=== PATIENT | female | born 1965 | race Caucasian/White ===

== ENCOUNTER 2016-10-20 12:13 | Emergency (ER) | payer MEDICARE, OTHER ==
--- NOTE | 2016-10-20 12:57 | ED ---
Chest Pain HPI - General Chief Complaint: Chest Pain Stated Complaint: Sent by -Heart Symptoms Time Seen by Provider: 10/20/16 12:46 Source: patient, RN notes reviewed Mode of arrival: ambulatory Limitations: no limitations - History of Present Illness Initial Comments: This is a 51-year-old female who presents with complaints of left arm heaviness for the past 9 days also some left chest and axillary pain. She also states she had a sore throat that she was coming down with something. 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 She denies any overt fevers chills or sweats she has any history of high cholesterol type 2 diabetes. She also has a history right foot drop from previous surgery. She states her physical therapist believes her left arm symptoms are secondary to a pinched nerve. MD Complaint: chest pain - Related Data Home Medications Medication Instructions Recorded Confirmed Naproxen Sodium [Aleve] 440 mg PO BID 10/02/14 10/20/16 Cyclobenzaprine [Flexeril] 10 mg PO HS PRN 05/18/16 10/20/16 Ergocalciferol [Vitamin D2] 50,000 unit PO TUTH 05/18/16 10/20/16 Gabapentin [Neurontin] 1,200 mg PO BID 05/18/16 10/20/16 Allergies Allergy/AdvReac Type Severity Reaction Status Date / Time zolpidem tartrate AdvReac Hallucinati Verified 10/20/16 12:50 [From [facility]] ons Review of Systems ROS Statement: Those systems with pertinent positive or pertinent negative responses have been documented in the HPI. ROS Other: All systems not noted in ROS Statement are negative. EKG Findings - EKG Results: EKG: interpreted by [facility]RE, sinus rhythm (Normal sinus rhythm a rate of 86. Interval 170 QRS duration 90 QT/QTC of 370/442 this is a normal-appearing EKG.) Past Medical History Past Medical History: Hyperlipidemia Additional Past Medical History / Comment(s): back pain, neuropathy,foot drop History of Any Multi-Drug Resistant Organisms: None Reported Past Surgical History: Back Surgery Additional Past Surgical History / Comment(s): vocal cords Past Psychological History: Depression Smoking Status: Current every day smoker Past Alcohol Use History: Occasional Past Drug Use History: None Reported General Exam - General Exam Comments Initial Comments: This a well-developed well-nourished awake alert oriented x 3 female Limitations: no limitations General appearance: alert, in no apparent distress Head exam: Present: atraumatic, normocephalic, normal inspection Eye exam: Present: normal appearance, PERRL, EOMI. Absent: scleral icterus, conjunctival injection, periorbital swelling ENT exam: Present: normal exam, mucous membranes moist Neck exam: Present: normal inspection. Absent: tenderness, meningismus, lymphadenopathy Respiratory exam: Present: normal lung sounds bilaterally, chest wall tenderness (Reproducible chest tenderness palpation of the left costochondral margin left upper chest wall. Left axilla.). Absent: respiratory distress, wheezes, rales, rhonchi, stridor Cardiovascular Exam: Present: regular rate, normal rhythm, normal heart sounds. Absent: systolic murmur, diastolic murmur, rubs, gallop, clicks GI/Abdominal exam: Present: soft, normal bowel sounds. Absent: distended, tenderness, guarding, rebound, rigid Extremities exam: Present: normal inspection, full ROM, normal capillary refill. Absent: tenderness, pedal edema, joint swelling, calf tenderness Back exam: Present: normal inspection Neurological exam: Present: alert, oriented X3, CN II-XII intact Psychiatric exam: Present: normal affect, normal mood Skin exam: Present: warm, dry, intact, normal color. Absent: rash Course Vital Signs 10/20/16 10/20/16 10/20/16 12:19 12:50 13:36 Temperature 98.0 F 98.2 F Pulse Rate 101 H 99 78 Respiratory 18 16 18 Rate Blood Pressure 130/81 139/81 136/84 O2 Sat by Pulse 98 100 96 Oximetry 10/20/16 10/20/16 14:09 14:49 Temperature 97.6 F Pulse Rate 72 84 Respiratory 18 18 Rate Blood Pressure 108/68 129/79 O2 Sat by Pulse 95 98 Oximetry Chest Pain MDM - MDM Review the x-ray shows no acute findings. It did discuss the findings with the patient and her family. The presentation is consistent with chest wall pain and costochondritis patient will be discharged with instructions for anti- inflammatory she states she does have Aleve at home and will use this I did recommend warm compresses. Follow-up with her doctor and return when necessary additionally some the discomfort to her upper extremity is likely secondary to some cervical radiculopathy. Disposition Clinical Impression: Chest wall syndrome, Costalchondritis, Cervical radiculopathy Disposition: HOME SELF-CARE Condition: Good Instructions: Costochondritis (ED), Cervical Radiculopathy (ED)
[2016-10-20 13:23] LABS: Partial Thromboplastin Time 25.2 sec (22.0-30.0); Prothrombin Time 10.2 sec (9.0-12.0)
--- NOTE | 2016-10-20 13:26 | XR ---
EXAMINATION TYPE: XR chest 2V DATE OF EXAM: 10/20/2016 1:10 PM COMPARISON: 05/18/2016 TECHNIQUE: PA and lateral views submitted. HISTORY: Chest pain FINDINGS: The lungs are clear and there is no pneumothorax, pleural effusion, or focal pneumonia. Hyperinflat ion suggests COPD. There is a vague density along the medial margin the right apex likely was present on the previous exam and may be pleural-based. This could be reached correlate with a short-term out patient CT chest. IMPRESSION: 1. No acute process. See above.
[2016-10-20 13:31] LABS: ALT 33 U/L (9-52); AST 37 U/L (14-36); Alkaline Phosphatase 126 U/L (38-126); Anion Gap 14 mmol/L; Blood Urea Nitrogen 10 mg/dL (7-17); Calcium 9.8 mg/dL (8.4-10.2); Carbon Dioxide 23 mmol/L (22-30); Chloride 105 mmol/L (98-107); Glucose 98 mg/dL (74-99); Magnesium 1.9 mg/dL (1.6-2.3); Non-African American GFR(MDRD) >60 (>60 ml/min/1.73 sqM); Sodium 142 mmol/L (137-145); Total Bilirubin 0.6 mg/dL (0.2-1.3); Total Protein 7.9 g/dL (6.3-8.2)
[2016-10-20 13:36] LABS: Basophils # (A) 0.1 k/uL (0-0.2); Basophils % (A) 1 %; CH 32.9; CHCM 34.2; Eosinophils # (A) 0.1 k/uL (0-0.7); Eosinophils % (A) 2 %; HCT 47.6 % (34.0-46.0); HDW 2.41; HGB 16.3 gm/dL (11.4-16.0); Luc # (Auto) 0.19; Luc % (Auto) 3; Lymphocytes # (A) 2.4 k/uL (1.0-4.8); Lymphocytes % (A) 36 %; MCH 33.1 pg (25.0-35.0); MCHC 34.3 g/dL (31.0-37.0); MCV 96.5 fL (80.0-100.0); Mean Platelet Volume 9.4; Monocytes # (A) 0.3 k/uL (0-1.0); Monocytes % (A) 5 %; Neutrophils # (A) 3.7 k/uL (1.3-7.7); Neutrophils % (A) 54 %; RBC 4.93 m/uL (3.80-5.40); RDW 12.8 % (11.5-15.5); WBC 6.8 k/uL (3.8-10.6); WBC (Perox) 7.13
[2016-10-20 13:38] VITALS: RESP 18
[2016-10-20 13:50] LABS: Creatine Kinase MB 1.1 ng/mL (0.0-2.4); Troponin I <0.012 ng/mL (0.000-0.034)
[2016-10-20 13:52] LABS: Creatine Kinase 128 U/L (30-135)
[2016-10-20 14:51] VITALS: TEMP 97.6
[2016-10-20 16:36] VITALS: BP 116/78; PULSE 87
== END 2016-10-20 16:35 | disposition home or self-care (01) ==
LOC: EC 12:13
DX: M94.0 Chondrocostal junction syndrome [Tietze] (principal); M54.12 Radiculopathy, cervical region; J02.9 Acute pharyngitis, unspecified; G62.9 Polyneuropathy, unspecified; F32.9 Major depressive disorder, single episode, unspecified; F17.200 Nicotine dependence, unspecified, uncomplicated; Z79.899 Other long term (current) drug therapy; Z88.8 Allergy status to other drugs, medicaments and biological substances
CPT/HCPCS: 36415; 71020; 80053; 82550; 82553; 83735; 83880; 84484; 85025; 85379; 85610; 85730; 93005; 99285

== ENCOUNTER → 2016-11-15 | Outpatient (CLI) | payer MEDICARE, OTHER ==
[2016-11-15 08:18] LABS: Blood Urea Nitrogen 13 mg/dL (7-17); Non-African American GFR(MDRD) >60 (>60 ml/min/1.73 sqM)
--- NOTE | 2016-11-15 09:18 | CT ---
EXAMINATION TYPE: CT chest w con DATE OF EXAM: 11/15/2016 8:57 AM COMPARISON: Chest x-ray October 20, 2016. HISTORY: Abnormal finding in lung field, abnormal recent chest x-ray CT DLP: 134.4 mGycm. Automated Exposure Control for Dose Reduction was Utilized. TECHNIQUE: CT scan of the thorax is performed following with IV Contrast, patient injected with 100 mL of Omnipaque 300. FINDINGS: LUNGS: [id number] underlying emphysematous change is present bilaterally. There is mild apical scarring bilaterally. No concerning parenchymal nodule or mass is seen with particular attention to t he medial right upper lobe at area of x-ray concern. No pleural effusion or pneumothorax is present b ilaterally. Tracheobronchial tree is patent. MEDIASTINUM: There are no greater than 1 cm hilar or mediastinal lymph nodes. No cardiomegaly or p ericardial effusion is seen. OTHER: Slight underlying scoliotic curvature of the thoracic spine is present. IMPRESSION: Mild to moderate emphysematous change without acute pulmonary process. No suspicious nodu le or mass with particular attention to medial aspect right upper lobe.
== END ==
LOC: RADCTMAIN 07:37
PROVIDERS: ATTEND Physician Assistant
DX: J43.9 Emphysema, unspecified (principal)
CPT/HCPCS: 82565; 84520; 71260; 36415; Q9967

== ENCOUNTER → 2018-04-11 | Outpatient (CLI) | payer OTHER ==
[2018-04-11 15:54] LABS: Blood Urea Nitrogen 11 mg/dL (7-17)
== END | disposition home or self-care (01) ==
LOC: LABWHC1 14:57
PROVIDERS: ATTEND Physical Medicine & Rehabilitation
DX: M51.17 Intervertebral disc disorders with radiculopathy, lumbosacral region (principal); M47.27 Other spondylosis with radiculopathy, lumbosacral region; M21.371 Foot drop, right foot; M54.5 Low back pain; E11.9 Type 2 diabetes mellitus without complications
CPT/HCPCS: 36415; 82565; 84520

== ENCOUNTER → 2020-01-08 | Outpatient (CLI) | payer MEDICARE, OTHER ==
--- NOTE | 2020-01-09 11:40 | MR ---
EXAMINATION TYPE: MR lumbar spine wo/w con DATE OF EXAM: 01/08/2020 COMPARISON: CT lumbar spine August 12, 2015. Lumbar spine x-ray September 07, 2015. HISTORY: Right foot drop, myalgia, lumbosacral intervertebral disc degeneration, low back pain, post laminectomy syndrome, other intervertebral disc displacement, and right lower extremity weakness all per order. TECHNIQUE: Multiplanar, multisequence images of the lumbar spine is performed without and with IV contrast, util izing 6.5 mL intravenous Gadavist FINDINGS: Sagittal images of the lumbar spine show vertebral body heights and alignment to main [employer]. Artificial disc material at L4-L5 level redemonstrated. Position stable from 2016 CT, more p osterior in location than desired causing mass effect on the anterior spinal canal. There is disc jeanne iccation with severe disc space narrowing at L5-S1 level and heterogeneous Modic type II endplate luther nges. The conus medullaris is somewhat high in position not well seen on this study. Small hemangioma involving the inferior L3 vertebra. No suspicious postcontrast enhancement. Axial images show the T12-L1, L1-L2, L2-L3, and L3-L4 levels all to appear within normal limits. Axial images at L4-L5 level redemonstrate abnormal posterior position right paracentral artificial di sc material effacing the anterior thecal sac and encroaching but not effacing the exiting right L4 ne rve. Artifact from posterior fusion hardware is present. Right-sided laminectomy defect. Some artifac t at level of right neural foramina. No suspicious neural foraminal encroachment noted. Axial images at the L5-S1 level show tiny central disc protrusion. Spinal canal is preserved as are s ome increased epidural fat at this level. Bilateral neural foramina are patent. Suspected hepatomegaly or prominent right hepatic lobe redemonstrated correlating with 2016 CT. IMPRESSION: Postsurgical changes L4-L5 level with stable and satisfactory alignment. Note made of abn ormal but stable posterior positioning of the artificial disc material encroaching on the right anter olateral spinal canal. Further details as discussed in body of report.
== END | disposition home or self-care (01) ==
LOC: RADMRIMAIN 15:38
PROVIDERS: ATTEND Physical Medicine & Rehabilitation
DX: Z98.890 Other specified postprocedural states (principal); R20.2 Paresthesia of skin; M50.221 Other cervical disc displacement at C4-C5 level; M21.371 Foot drop, right foot; M79.10 Myalgia, unspecified site; G56.22 Lesion of ulnar nerve, left upper limb; M51.17 Intervertebral disc disorders with radiculopathy, lumbosacral region; M51.36 Other intervertebral disc degeneration, lumbar region; M96.1 Postlaminectomy syndrome, not elsewhere classified; M51.26 Other intervertebral disc displacement, lumbar region
CPT/HCPCS: 72158; A9585

== ENCOUNTER → 2020-06-29 | Outpatient (CLI) | payer MEDICARE, OTHER | END | disposition home or self-care (01) | LOC: LABWHC1 11:22 | PROVIDERS: ATTEND Internal Medicine Cardiovascular Disease | DX: I51.7 Cardiomegaly (principal) | CPT/HCPCS: 36415; 93005 ==

== ENCOUNTER → 2020-08-07 | Outpatient (CLI) | payer MEDICARE, OTHER ==
--- NOTE | 2020-08-09 16:39 | MR ---
EXAMINATION TYPE: MR ankle LT wo con, MR foot LT wo con DATE OF EXAM: 08/07/2020 COMPARISON: Correlation CT foot 06/04/2015 HISTORY: 55-year-old female Pain, clicking, limited movement left foot/ankle TECHNIQUE: Multiplanar, multisequence images of the left ankle followed by the left foot were obtaine d without IV contrast. FINDINGS: ANKLE: There is a prominent bony protuberance from the dorsal lateral aspect of the distal talus with overly ing fluid measuring 2.1 x 2.0 x 0.5 cm. No abnormal osseous edema or suspicious bone marrow replacement at the ankle. Achilles tendon and origin of the plantar fascia are intact. The anterior extensor tendons and syndesmosis are intact. There is mild tenosynovial fluid along the malleoli and inframalleolar posterior tibial tendon. Poste rior tibial tendons are otherwise appear intact. Mild increased signal within the deep posterior delt oid ligament fibers possibly relating to an old injury or very low-grade sprain. Fibers appear intact . Spring ligament complex appears intact. The ATFL, PTFL, and CFL as well as the lateral peroneal tendons appear intact. Small tibiotalar and posterior subtalar joint effusions likely physiologic. Preserved fatty signal within the sinus tarsi. The tarsal tunnel is clear. FOOT: No suspicious bone marrow replacement. Small effusion within the first MTP joint. Mild degenerative change of the first MTP joint. The previous fracture at the base of the second metatarsal appears to have healed. There is mild subchondral degenerative signal change at the third and fourth TMT joints. Some focal marrow edema along the distal medial aspect of the cuboid bone with a minimal low T1 signa l here, sagittal image 7, axial images 9 and 10. Otherwise, no acute or healing fractures are identified. Intact portions of the Lisfranc ligament are visualized. COMBINED IMPRESSION: 1. The previous fracture at the base of the second metatarsal appears to have healed. However, there is at least mild, possibly moderate degenerative change at the third and fourth TMT joints noted. 2. Focal marrow edema involving the distal medial aspect of the cuboid bone could represent bone brui se, stress reaction, or a subtle, incomplete stress fracture given some associated low T1 signal here . Clinically correlate. 3. Bony protuberance/spurring from the dorsal lateral talar head. Fluid overlying this region measure s 2.1 x 2.0 x 0.5 cm and could represent a ganglion cyst extending from the sinus tarsi versus baptism itial bursitis. 4. Mild fluid along the posterior tibial tendon at the malleolar and inframalleolar level could be ph ysiologic or could reflect a mild tenosynovitis.
== END | disposition home or self-care (01) ==
LOC: RADMRIMAIN 12:06
PROVIDERS: ATTEND Orthopaedic Surgery
DX: M67.872 Other specified disorders of synovium, left ankle and foot (principal); R60.9 Edema, unspecified